=== PATIENT | male | born 1970 | race Caucasian/White ===

== ENCOUNTER 2024-07-05 07:37 | Emergency (ER) | payer OTHER ==
[~2024-07-05] VITALS: Ht 177.8 cm; Wt 100.7 kg
--- OUTSIDE RECORDS SUMMARY | 2024-07-05 07:44 | XMS ---
PreManage Notification: NAMAN CRUZ Security Linesperson Events No recent Security Events currently on file CRITERIA MET - [facility] - 2 Visits in 30 Days CARE PROVIDERS There are no care providers on record at this time. Martell has no Care Guidelines for this patient. [facility] MO[facility] NOTE: Visits indicate total known visits. ED/C VISIT TRACKING (12 MO.) [facility] 07[facility] COMPLAINT: - NAUSEA 07/04/2024 13:08 [facility] OR TYPE: Emergency COMPLAINT: - ABDOMINAL PAIN INPATIENT VISIT TRACKING (12 MO.) No inpatient visits to display in this time frame [id number]
[2024-07-05] MEDS ORDERED: MAGNESIUM CITRATE 300 ML BTL PO ONE (08:15)
[2024-07-05 08:27] VITALS: BP 120/86
== END 2024-07-05 08:30 | disposition home or self-care (01) ==
LOC: ED 07:37
DX: R10.9 Unspecified abdominal pain (principal); R11.0 Nausea; Z91.030 Bee allergy status
CPT/HCPCS: 99283